=== PATIENT | female | born 1965 | race Two or more races ===

== ENCOUNTER 2017-04-06 05:11 | Day surgery (SDC) | payer BC ==
--- NOTE | 2017-03-29 12:18 | Diagnostic Imaging Report ---
Indication: COUGH Technique: 2 views of the chest Comparison: none. Findings: Lungs and pleural spaces are clear. Heart size is normal. Bones are unremarkable except for minimal scoliotic deformity.. Impression: No acute process
--- NOTE | 2017-04-01 14:16 | Pre-op HX & Phy Repo 2 SIG ---
DATE OF ADMISSION: 04/06/2017 HISTORY OF PRESENT ILLNESS: The patient is due for right shoulder rotator cuff surgery with Dr. Moreno on 04/06/2017. This is a 51-year-old female, who presents to my office for preoperative evaluation for right shoulder surgery. The patient has a history of hypertension and was recently started on Norvasc and is here for followup for her BP. Her blood pressure has been fine. She is with Norvasc. She denies any chest pain or shortness of breath. Denies any headaches. No fevers or chills. PAST MEDICAL HISTORY: Includes a history of hypertension. No diabetes or hyperlipidemia. She denies any previous surgeries or hospitalizations. No bleeding diaphysis. MEDICATIONS: She is on calcium supplements, Biaxin for hair and nail, and Norvasc 5 mg daily. ALLERGIES: She is allergic to amoxicillin. She does take calcium supplementation and takes Biaxin for hair and nail. She was recently started Norvasc 5 mg daily. SOCIAL HISTORY: She does not smoke. She drinks alcohol socially. She drinks coffee on a daily basis. She tries to exercise. She works as a [employer]. She has for 25 years. FAMILY HISTORY: Mother had diabetes as well as grandparents. REVIEW OF SYSTEMS: No headaches. No sore throat. No chest pain or shortness of breath. No abdominal pain. No urinary symptoms. She does have hot flashes from the perimenopause and had some allergy symptoms at times, nasal allergies. PHYSICAL EXAMINATION: GENERAL: She is well developed, well nourished, currently in no apparent distress. VITAL SIGNS: Blood pressure today is 120/80, pulse 80, and respirations 18. She is afebrile. HEAD: Normocephalic and atraumatic. Pupils are equal and reactive to light. Extraocular muscles are intact. Eyes are anicteric. NECK: Supple. No JVP. No bruits. LUNGS: Clear bilaterally. HEART: Regular rate and rhythm without murmurs, rubs, or gallops. ABDOMEN: Soft. Positive bowel sounds. Nondistended. Nontender. EXTREMITIES: No clubbing, cyanosis, or edema. PSYCHIATRIC: Appropriate. NEUROLOGIC: Nonfocal. ASSESSMENT AND PLAN: The patient is a very pleasant 51-year-old female with hypertension, on Norvasc, tolerating medication well. Blood pressure controlled. Preoperative laboratories with CBC, CMP, PT, PTT, urinalysis, EKG, and chest x-ray have been ordered. The patient has been cleared for her proposed surgery. She was told not to take any aspirin products for a week prior to her proposed surgery. Thank you for allowing to participate in the care of this patient. Antonio Diana M.D. DR: TERESITA JOB#: [id number] CC: Dionisio Moreno M.D.; Fax#: [phone]
--- NOTE | 2017-04-05 09:41 | Pre-Procedure Note/Attestation ---
Pre-Procedure Note/Attestation Complete Prior to Procedure Planned Procedure: right Procedure Narrative: Rt shoulder scope, SAD, mini sonia, RTC repair Indications for Procedure Pre-Operative Diagnosis: Rt shoulder RTC tear Attestation I attest that I discussed the nature of the procedure; its benefits; risks and complications; and alternatives (and the risks and benefits of such alternatives ), prior to the procedure, with the patient (or the patient's legal outside dealer sales representative). I attest that, if there was a reasonable possibility of needing a blood transfusion, the patient (or the patient's legal outside dealer sales representative) was given the [facility] standardized written summary, pursuant to the Darian Eliel Blood Safety Act ([place] Health and Safety Code # 1645, as amended). I attest that I re-evaluated the patient just prior to the surgery and that there has been no change in the patient's H&P, except as documented below: NONE CAMELIA CH Apr 05, 2017 09:41
[~2017-04-06] VITALS: Ht 157.5 cm; Wt 69.9 kg
[2017-04-06] VITALS (11 sets, daily range): BP systolic 111–133; BP diastolic 74–88
[~2017-04-06 05:11] MED LIST: AMLODIPINE BESYL5 MG ORAL
[2017-04-06] MEDS ORDERED: celeBREX 200mg Cap **SURGERY PATIENTS ONLY ORAL ONE ×2 (06:00→06:15)
[2017-04-06] MEDS ORDERED: oxyCONTIN 20mg tab ORAL ONE (06:00)
[2017-04-06] MEDS ORDERED: ceFAZolin 1gm in D5W 55ml IVP ONE (06:00)
--- NOTE | 2017-04-06 06:37 | Anethesia Preoperative Eval ---
Anesthesia Pre-op PMH/ROS General Date of Evaluation: Apr 06, 2017 Anesthesiologist: Jasson ASA Score: ASA 2 Mallampati Score Class I : Soft palate, uvula, fauces, pillars visible Class II: Soft palate, uvula, fauces visible Class III: Soft palate, base of uvula visible Class IV: Only hard plate visible Mallampati Classification: Class II Surgeon: Tiffanie Diagnosis: Right shoulder torn rotator cuff Surgical Procedure: Right shoulder arthroscopy, rotator cuff repair Anesthesia History: none Family History: no anesthesia problems Allergies: Coded Allergies: AMOXICILLIN (Verified Allergy, Mild, 04/05/17) SKIN RASH Medications: see eMAR Past Medical History Cardiovascular: Reports: HTN, Denies: CAD, RI, arrhythmia, other, valve dz Pulmonary: Denies: COPD, DESTINI, asthma, other Gastrointestinal/Genitourinary: Denies: CRI, ESRD, GERD, other Neurologic/Psychiatric: Denies: CVA, TIA, dementia, depression/anxiety, other Endocrine: Denies: DM, hypothyroidism, other, steroids HEENT: Denies: [place] (L), [place] (R), cataract (L), cataract (R), glaucoma, other Hematology/Immune: Reports: anemia, Denies: DVT, bleeding disorder, other Musculoskeletal/Integumentary: Denies: DDD, DJD, OA, RA, edema, other PSxH Narrative: Denies Anesthesia Pre-op Phys. Exam Physician Exam Last Vital Signs Date Time Temp Pulse Resp B/P Pulse Ox O2 Delivery O2 Flow Rate FiO2 04/06/17 05:55 97.7 68 20 133/88 100 Room Air Constitutional: NAD Cardiovascular: RRR Respiratory: CTA Airway Exam Mallampati Score: Class II MO: full ROM: full Teeth: intact Anesthesia Pre-op A/P Labs see chart Urine Test Test 04/06/17 05:30 Urine HCG, Qualitative Negative Studies Pre-op Studies: EKG - sr Risk Assessment & Plan Assessment: ASA II Plan: GA Status Change Before Surgery: No Pre-Antibiotics Drug: Ancef 1g Given Within 1 Hr of Incision: Yes Time Given: 07:15 JANEL OWENS M.D. Apr 06, 2017 06:37
[2017-04-06] MEDS ORDERED: Bupivacaine w/Epi 0.5% 30ml Vial INJ ONE (06:50)
[2017-04-06] MEDS ORDERED: Ropivacaine 5mg/ml Vial 20ml INJ ONE (06:50)
[2017-04-06] MEDS ORDERED: Propofol 10mg/ml 20ml IV ONE (07:00)
[2017-04-06] MEDS ORDERED: NS Irrig 4000ml IRRIG ONE (07:00)
[2017-04-06] MEDS ORDERED: Zemuron 50mg/5ml Inj IV ONE (07:00)
[2017-04-06] MEDS ORDERED: Lidocaine 1% MPF 10mg/ml 5ml ONE (07:00)
[2017-04-06] MEDS ORDERED: fentaNYL 250mcg/5ml ONE (07:00)
[2017-04-06] MEDS ORDERED: Metoclopramide 10mg/2ml Inj ONE (07:00)
[2017-04-06] MEDS ORDERED: Midazolam 2mg/2ml Inj ONE (07:00)
[2017-04-06] MEDS ORDERED: LR 1000ml ONE (07:00)
[2017-04-06] MEDS ORDERED: Dexamethasone 4mg/ml vial ONE (07:00)
[2017-04-06] MEDS ORDERED: Ketorolac 30mg Inj ONE (07:00)
--- NOTE | 2017-04-06 07:31 | Immediate Post-Op Evaluation ---
Immediate Post-Op Evalulation Immediate Post-Op Evalulation Procedure: Right shoulder arthroscopy, rotator cuff repair Date of Evaluation: Apr 06, 2017 Time of Evaluation: 08:28 IV Fluids: 800 Blood Products: 0 Estimated Blood Loss: 10 Urinary Output: 0 Blood Pressure Systolic: 111 Blood Pressure Diastolic: 74 Pulse Rate: 71 Respiratory Rate: 16 O2 Sat by Pulse Oximetry: 100 Temperature (Fahrenheit): 97.2 Pain Score (1-10): 0 Nausea: No Vomiting: No Complications 0 Patient Status: awake, reacts, patent, none Hydration Status: adequate Drug: Ancef 1g Given Within 1 Hr of Incision: Yes Time Given: 07:15 JANEL OWENS M.D. Apr 06, 2017 07:31
--- NOTE | 2017-04-06 07:32 | 48 Hour Post Anesthesia Eval ---
Post Anesthesia Evaluation Procedure: Right shoulder arthroscopy, rotator cuff repair Date of Evaluation: Apr 06, 2017 Time of Evaluation: 11:00 Blood Pressure Systolic: 121 0: 75 Pulse Rate: 65 Respiratory Rate: 18 Temperature (Fahrenheit): 97.5 O2 Sat by Pulse Oximetry: 98 Airway: patent Nausea: No Vomiting: No Pain Intensity: 0 Hydration Status: adequate Cardiopulmonary Status: at baseline Mental Status/LOC: patient returned to baseline Post-Anesthesia Complications: 0 Follow-up care needed: ready to discharge JANEL OWENS M.D. Apr 06, 2017 07:32
--- NOTE | 2017-04-06 08:20 | Brief Operative Note ---
Immediate Post Operative Note Operative Note Chief Complaint: rt shoulder pain Pre-op Diagnosis: rt shoulder RTC tear Procedure: Rt shoulder scope, SAD, mini sonia, RTC debridement Post-op Diagnosis: same as pre-op Findings: consistent w/pre-op dx studies Surgeon: md Tiffanie Account Relationship Manager: ced Ibrahim Anesthesiologist: md Jasson Anesthesia: general, regional Specimen: none Complications: none Condition: stable Estimated Blood Loss: minimal Drains: none Implant(s) used?: No LORENE IBRAHIM Apr 06, 2017 08:20
[2017-04-06] MEDS ORDERED: Norco 5mg/325mg tab ORAL PRN (12:30)
[2017-04-06] MEDS ORDERED: Tylenol #3 tab (300mg/30mg) ORAL PRN (12:30)
[2017-04-06] MEDS ORDERED: D5 1/2NS 1,000 ML IV SCH (12:30)
[2017-04-06] MEDS ORDERED: HYDROmorphone 1mg/ml Carpuject SUBQ PRN (12:30)
--- NOTE | 2017-04-06 13:30 | Operative Note - Dictated ---
DATE OF OPERATION: 04/06/2017 PREOPERATIVE DIAGNOSIS: Right shoulder partial articular-sided rotator cuff tear. POSTOPERATIVE DIAGNOSES: 1. Right shoulder partial articular-sided rotator cuff tear involving 30% articular-sided rotator cuff without full thickness tear. 2. Right shoulder impingement with large subacromial bone spur. 3. Right shoulder acromioclavicular joint bone spur. PROCEDURES: 1. Right shoulder arthroscopy and extensive intra-articular shaving. 2. Right shoulder subacromial bursoscopy, bursectomy, and subacromial decompression. 3. Right shoulder mini-Sonia procedure (resection inferior 30% distal end of the clavicle). 4. Right shoulder arthroscopic debridement of the articular-sided rotator cuff tear without repair. SURGEON: Dionisio Moreno M.D. WORKERS' COMPENSATION HEARINGS OFFICER: Paty Ibrahim PA-C. Information Technology Associate was present during the actual operative portion of the case and was important and essential part of the operation. During the operation, the delinquent tax collector assistant held and operated the arthroscopic camera for visualization, assisted by manipulating the arm to help with visualization, and helped with essential parts of the repair process as necessary such as operating surgical instruments under surgeon supervision, suture management, and wound closures. ANESTHESIOLOGIST: Natividad Spaulding M.D. ANESTHESIA: General LMA anesthesia. EBL: Minimal. COMPLICATIONS: None. SURGICAL INDICATION: Patient is a 51-year-old female, who sustained the above injury to her shoulder. The patient was treated non-operative initially, but this did not alleviate the patients symptoms. Therefore, after discussing all non-surgical and surgical options, and discussing all foreseeable risk and benefits of surgery, the patient opted for surgical treatment as described above. PATIENT POSITIONING: Patient was brought to the operating room table and was placed on the operating room table. All pressure points were well padded. General anesthesia was induced and patient was then placed in the lateral decubitus position. All pressure points were well padded again and an axillary roll was placed. Patient shoulder was then prepped and draped in the usual sterile fashion. Time out was performed and the appropriate preoperative antibiotic was given by the anesthesiologist. EXAMINATION OF SHOULDER UNDER ANESTHESIA: The shoulder was examined under anesthesia with all muscles well relaxed. The shoulder was forward flexed, abducted and was placed through full range of external and internal rotation. The anterior, posterior, and inferior stability of the shoulder was checked. The exam revealed no evidence of adhesive capsulitis and no evidence of instability. PORTAL PLACEMENT: The posterior portal was established 2 cm inferior and 1 cm medial to the edge of the posterior acromion. 1 cm skin incision was made using an eleven blade and using the blunt obturator, the cannula was gently placed through the capsule. The midglenoid portal was established just lateral to the coracoid process under direct visualization. Direction of the cannula was first established using a spinal needle, and subsequently, the cannula was placed through the capsule with a blunt obturator. DIAGNOSTIC ARTHROSCOPY: The biceps tendon was probed and pulled through the joint for visualization. It appeared normal. The biceps anchor was palpated with a probe and was visualized. It appeared well attached and there was no evidence of SLAP tear. The posterior labrum and axillary recess was visualized. This was normal and there was no evidence of loose cartilage or fragments in this area. The glenoid articular surface was visualized and it appeared normal. The articular surface of the rotator cuff was visualized and probed next. There was evidence of articular sided rotator cuff tear involving 30% of the rotator cuff. However, there was no full thickness with the cuff tear. The Humeral head articular surface was then visualized. There was no evidence of articular cartilage damage. Next the anterior labrum, middle gleno-humeral ligament, subscapularis tendon, and the anterior inferior gleno-humeral ligament were evaluated. These structures were completely normal. At this point, the scope was moved to the midglenoid portal and the posterior structures including the posterior labrum, posterior capsule and posterior cuff were visualized. These structures were completely normal. The subscapularis recess was devoid of any loose bodies and the anterior capsule was well attached to the humeral neck. The middle and anterior inferior glenohumeral ligament was visualized. These structures were completely normal. OPERATIVE DEBRIDEMENTS AND REPAIR: Care was given to all partial thickness tears and frayed structures in the shoulder joint. The frayed rotator cuff and labrum was debrided using a shaver initially through the anterior portal and subsequently through the posterior portal to complete the debridement. This allowed for smooth debridement of all affected structures and all loose fragments were removed. DIAGNOSTIC BURSASCOPY AND SUBACROMIAL DECOMPRESSION: The subacromion bursa was entered from the posterior portal. The anterior portal was established under the CA ligament using a switching stick. Subacromial arthroscopy was initiated. There was extensive bursitis and thickened and inflamed bursa tissue present. The CA ligament appeared to be scuffed and frayed. The shaver was placed through the anterior cannula and debridement of the hypertrophic bursa tissue was accomplished. Once visualization was adequate, a lateral portal was established using a blunt trochar in the mid portion of the acromion bone in the anterior-posterior direction and approximately 2 cm lateral to the lateral edge of the acromion. Using combination of shaver and electrocautery the CA ligament was released from the undersurface of the acromion and a complete bursectomy was accomplished. At this point, a subacromial decompression was performed using a crissy initially taking off 5-8 mm of the anterolateral edge of the acromion from the lateral portal and viewing from the posterior portal. Then the lateral border of the undersurface of the acromion was decompressed to the same dept as the anterolateral edge. A posterior trough was then created in the acromion in line with the posterior edge of the clavicle. At this point, the scope was placed in the lateral portal and the subacromial decompression was performed from the posterior portal decompressing the undersurface of the acromion to dept of 5-8 mm. The decompression was performed anterior to the previously marked trough all the way medially to the level of the AC joint. At all times, care was given not to take off too much bone in order to avoid risk of fracture of the acromion. An excellent subacromial decompression was performed in this fashion. At this point, the bursal side of the rotator cuff was examined. All the bursa over the rotator cuff was removed and the rotator cuff was examined with a probe. The arm was placed into external rotation, neutral, and then internal rotation and there was no evidence of tear of the rotator cuff. The scope was then placed in the posterior portal and the subacromial decompression was rechecked to assure there is no area of bone spur that would be still impinging onto the rotator cuff. EVALUATION OF DISTAL CLAVICLE AND DISTAL CLAVICLE RESECTION: Care was given to the distal end of the clavicle. Using electrocautery and yong, the distal end of the bursa and soft tissue around the distal end of the clavicle was debrided and cleaned. Care was given not to inflict excessive trauma to the ligaments of the AC joint. The distal end of the clavicle appeared to have an inferior osteophyte extending down well bellow the level of the acromion at the level of the AC joint. This appeared to be impinging onto the supraspinatus muscle belly and the musculotendinous junction of the rotator cuff. A mini-sonia procedure was performed by using a crissy to resect the inferior 30% of the distal end of the clavicle. This decompression allowed space for the inferior structures to slide without impingement. This co-plained the inferior edge of the distal clavicle with the inferior edge of the acromion. (For rotator cuff repair) The scope was placed in the lateral portal and the rotator cuff was visualized. The rotator cuff revealed the rotator cuff foot print adjacent to the articular cartilage of the humeral head was identified. This area was debrided initially using yong and subsequently using crissy to provide adequate bleeding bony surface to accept the rotator cuff tendon. Attention was given to repair the rotator cuff with as little tension as possible. At this point, an arthroscopic punch was used to create holes for suture anchor placement at the medial edge of the foot print through separate stab wound incisions and an arthroscopic tap was used to prepare the holes. Double loaded with two #2 non-absorbable strong sutures placed in previously prepared holes. Using standard arthroscopic suture passing instruments, the sutures were passed through the edge of rotator cuff with minimal trauma to the cuff tissue. Care was given to obtain large enough bites of the rotator cuff for the sutures to hold well. Once the sutures were passed through the cuff, the repair was secured onto the rotator cuff foot print using SMC sliding knots followed by 3 alternating-post half hitches. This allowed tension free repair of the rotator cuff with excellent stability and water tight closure. The cuff repair security was assured by palpating the repair with a probe. CONDITION AT DISCHARGE FROM OPERATING ROOM: The skin was re-approximated and sterile dressing and sling were applied. All lap counts and instrument counts were correct. Patient tolerated the procedure well without complications and was taken to the recovery room in stable conditions. Dionisio Moreno M.D. DR: ADAMS JOB#: [id number] CC:
== END 2017-04-06 11:15 | disposition home or self-care (01) ==
LOC: SUR 05:11
DX: M75.111 Incomplete rotator cuff tear or rupture of right shoulder, not specified as traumatic (principal); M75.41 Impingement syndrome of right shoulder; M75.81 Other shoulder lesions, right shoulder; I10 Essential (primary) hypertension; E11.9 Type 2 diabetes mellitus without complications; E78.5 Hyperlipidemia, unspecified; D64.9 Anemia, unspecified; Z88.1 Allergy status to other antibiotic agents
CPT/HCPCS: 29823; 29824; 29826; 71020; 81025; J0690; J1100; J1885; J2250; J2405; J2704; J2765; J2795; J3010; J7120; 94003; 94150